=== PATIENT | female | born 1965 | race African-American/Black ===

== ENCOUNTER 2021-07-10 23:18 | Emergency (ER) | payer OTHER, SELFPAY ==
[~2021-07-10] VITALS: Ht 167.6 cm; Wt 74.8 kg
[2021-07-10 23:33] VITALS: BP_SYST 156
--- NOTE | 2021-07-10 23:40 | NUR ---
Pt placed to ER bed 07, to gown, to monitoring tech. Pt c/o SOB r/t asthma exacerbation. Pt states that she believes a "gas smell" triggered episode and has been progressively worsening since 2 pm today. Audible wheezing, tachypnea. SPO2 95% RA. Pt states that she took 2 rounds of inhaler (2 puffs each) and used albuterol nebulizer with no relief in symptoms.
--- NOTE | 2021-07-10 23:40 | NUR ---
Pt placed to ER bed 08.
--- NOTE | 2021-07-10 23:45 | NUR ---
Dr. Amador at bedside. Addendum: 07/11/21 at 0000 by SDEDAJ Pt placed on O2 at 2 LPM/NC per VO Dr. Amador. SPO2 97%.
--- NOTE | 2021-07-10 23:50 | NUR ---
RT at bedside. Neb tx IP.
[2021-07-11] MEDS ORDERED: DEXAMETHASONE SOD PHOSPHATE 4 MG/ML VIAL IVP ONE
[2021-07-11] MEDS ORDERED: IPRATROPIUM/ALBUTEROL SULFATE 3 ML AMPUL.NEB (DUONEB) INH ONE
--- NOTE | 2021-07-11 | NUR ---
Pt verbalizes improvement in breathing, no audible wheezing, SPO2 99 s/p breathing tx. NAD.
--- NOTE | 2021-07-11 00:10 | NUR ---
# 20 gauge angiocath placed to LAC. Use of asceptic technique. Opsite placed over site. Blood return noted. Blood for lab drawn from site. Flushed with 10 cc of normal saline. No evidence of infiltration noted. Patient tolerated well. Specimens for COVID and Infuenza antigens collected and sent to lab.
--- NOTE | 2021-07-11 00:15 | NUR ---
RT at bedside to perform ABG.
--- NOTE | 2021-07-11 00:25 | NUR ---
Radiology at bedside.
[2021-07-11 00:49] LABS: BASOPHILS # (AUTO) 0.1 K/uL (0.0-0.2); BASOPHILS % (AUTO) 0.9 % (0.0-2.0); EOSINOPHILS # (AUTO) 0.8 K/uL (0.0-0.4); EOSINOPHILS % (AUTO) 7.5 % (0.0-4.0); HEMATOCRIT 44.1 % (36-48); HEMOGLOBIN 14.3 g/dL (12.0-16.0); LYMPHOCYTES # (AUTO) 2.9 K/uL (1.0-5.5); LYMPHOCYTES % (AUTO) 26.6 % (20.5-51.5); MEAN CORPUSCULAR HEMOGLOBIN 29 pg (27-31); MEAN CORPUSCULAR HGB CONC 33 % (32-36); MEAN CORPUSCULAR VOLUME 90 fL (79.0-98.0); MONOCYTES # (AUTO) 0.8 K/uL (0.0-1.0); MONOCYTES % (AUTO) 7.6 % (1.7-9.3); NEUTROPHILS # (AUTO) 6.2 K/uL (1.8-7.7); NEUTROPHILS % (AUTO) 57.4 % (40.0-70.0); PLATELET COUNT (AUTO) 213 K/uL (130-430); RED BLOOD CELL COUNT(AUTO) 4.89 MIL/uL (4.2-6.2); RED CELL DISTRIBUTION WIDTH 13.9 % (9.0-15.0); WHITE BLOOD COUNT (AUTO) 10.9 K/uL (4.8-10.8)
[2021-07-11 01:27] LABS: ANION GAP 5 (5-15); CALCIUM 11.2 mg/dL (8.4-11.0); CHLORIDE 108 mmol/L (98-107); CREATININE 0.98 mg/dL (0.55-1.30); GLUCOSE 110 mg/dL (70-99); POTASSIUM 3.3 mmol/L (3.5-5.1); SODIUM SERUM 144 mmol/L (136-145); UREA NITROGEN, BLOOD 16 mg/dL (8-21)
[2021-07-11 01:30] LABS: GFR AFRICAN AMERICAN 75 mL/min (>90)
--- NOTE | 2021-07-11 01:30 | NUR ---
Resting quietly, respirations even and non-labored, SPO2 99%. Denies c/o pain or discomfort and no needs verbalized at this time. NAD.
[2021-07-11 01:36] LABS: ALANINE AMINOTRANSFERASE 16 U/L (12-78); ALBUMIN 3.1 g/dL (3.4-4.8); ASPARTATE AMINOTRANSFERASE 13 U/L (10-37)
[2021-07-11] MEDS ORDERED: ALBU8.5H8 INH (01:39)
[2021-07-11] MEDS ORDERED: PRED20TA PO (01:39)
[2021-07-11] MEDS ORDERED: IPRA3AMP9 INH (01:39)
[2021-07-11 01:56] LABS: TOTAL BILIRUBIN < 0.1 mg/dL (0.0-1.0)
[2021-07-11 02:00] VITALS: BP_SYST 138
--- NOTE | 2021-07-11 02:00 | NUR ---
Patient given written and verbal discharge instructions and verbalizes understanding. ER MD discussed with patient the results and treatment provided. Patient in stable condition. ID arm band removed. IV catheter removed intact and dressing applied, no active bleeding. Rx of Proair HFA, DuoNeb, and Prednisone given. Patient educated on pain management and to follow up with PMD. Pain Scale 0/10. Opportunity for questions provided and answered. Medication side effect fact sheet provided.
== END 2021-07-11 02:00 | disposition home or self-care (01) ==
LOC: SED 23:18
DX: J45.901 Unspecified asthma with (acute) exacerbation (principal); Z20.822 Contact with and (suspected) exposure to COVID-19
CPT/HCPCS: 36415; 36600; 71045; 80053; 82803; 83880; 84484; 85025; 85379; 86710; 87426; 87804 ×2; 94640; 96374; 99284; J1100

== ENCOUNTER 2021-08-12 10:47 | Emergency (ER) | payer OTHER ==
[~2021-08-12] VITALS: Ht 167.6 cm; Wt 73.5 kg
[~2021-08-12 10:47] MED LIST: ALBU8.5H8 INH; IPRA3AMP9 INH; PRED20TA PO
[2021-08-12 10:52] VITALS: BP_SYST 161
--- NOTE | 2021-08-12 10:52 | NUR ---
Placed in room 6 . Placed on clinical research monitor, blood pressure machine and pulse oximeter. To gown for exam. Side rails up. Report given to ROSIBEL LIVE.
--- NOTE | 2021-08-12 10:53 | NUR ---
ER DR. PLATT EXAMINING PT
--- NOTE | 2021-08-12 10:57 | NUR ---
DANNI QUINTANA 89 FROM HOME REPORTS GETTING SOB AFTER SMELLING [employer] SUBSTANCE INSIDE HOME, WHEEZING, HX ASTHMA USED ALBUTEROL MDI AT HOME CALLED 911 BREATHING TX X1 EN ROUTE. ON SCENE 02 92% ON RA. PT ARRIVES AAOX4, WHEEZING. RT AT THE BEDSIDE FOR BREATHING TX. PT STATES SHE FEELS IMPROVED. #20 TO LAC FROM EMS IN PLACE IN PATENT
[2021-08-12] MEDS ORDERED: methylPREDNISolone SOD SUCC/PF 62.5 MG/ML VIAL IVP ONE (11:00)
[2021-08-12] MEDS ORDERED: IPRATROPIUM/ALBUTEROL SULFATE 3 ML AMPUL.NEB (DUONEB) INH ONE (11:00)
[2021-08-12] MEDS ORDERED: NACL 0.9% 1,000 ML IV ONE (11:00)
--- NOTE | 2021-08-12 11:12 | NUR ---
pt feels improvement after RT TX.
--- NOTE | 2021-08-12 12:08 | NUR ---
Called received from Daughter in law Neha Barnett stating she will pick patient uo once discharged , phone number [phone]
[2021-08-12] MEDS ORDERED: KETOROLAC TROMETHAMINE 30 MG VIAL IVP ONE (12:45)
--- NOTE | 2021-08-12 12:50 | NUR ---
Pt medicated for chest wall pain with Toradol 30 mg IVP , well tolerated
[2021-08-12] MEDS ORDERED: ALBU8.5H8 INH (13:32)
[2021-08-12] MEDS ORDERED: PRED20TA PO (13:32)
[2021-08-12 13:41] VITALS: BP_SYST 133
--- NOTE | 2021-08-12 13:42 | NUR ---
Patient given written and verbal discharge instructions and verbalizes understanding. ER Dr. Barkley discussed with patient the results and treatment provided. Patient in stable condition. ID arm band removed. IV catheter removed intact and dressing applied, no active bleeding. Rx of albuterol and prednisone given. Patient educated on pain management and to follow up with PMD. Pain Scale 1. Opportunity for questions provided and answered. Medication side effect fact sheet provided.
== END 2021-08-12 13:42 | disposition home or self-care (01) ==
LOC: SED 10:47
DX: J45.901 Unspecified asthma with (acute) exacerbation (principal); I10 Essential (primary) hypertension
CPT/HCPCS: 94640; 96361; 96374; 96375; 99284; J1885; J2930; J7030

== ENCOUNTER 2021-08-28 19:52 | Inpatient (IN) | payer OTHER ==
[~2021-08-28] VITALS: Ht 167.6 cm; Wt 74.8 kg
--- NOTE | 2021-08-28 19:53 | NUR ---
Pt placed in gown and ready for evaluation ER at bedside examining patient.
[2021-08-28] MEDS ORDERED: MAGNESIUM SULFATE 1 GM/2 ML VIAL ONE (19:59)
[2021-08-28] MEDS ORDERED: MAGNESIUM SULFATE 50 ML IV ONE (20:00)
[2021-08-28] MEDS ORDERED: methylPREDNISolone SOD SUCC 500 MG/VIAL (Solu-MEDROL) IV ONE (20:00)
[2021-08-28] MEDS ORDERED: IPRATROPIUM BROM 0.5 MG/2.5 ML VIAL.NEB (ATROVENT) INH ONE ×2 (20:00→20:01)
[2021-08-28] MEDS ORDERED: ALBUTEROL SULFATE 0.083% 2.5 MG/3 ML VIAL.NEB INH ONE ×2 (20:00)
[2021-08-28 20:28] LABS: EOSINOPHILS # (AUTO) 0.9 K/uL (0.0-0.4); HEMOGLOBIN 15.2 g/dL (12.0-16.0)
[2021-08-28 20:34] LABS: BASOPHILS # (AUTO) 0.1 K/uL (0.0-0.2); BASOPHILS % (AUTO) 1.1 % (0.0-2.0); EOSINOPHILS % (AUTO) 7.1 % (0.0-4.0); HEMATOCRIT 46.3 % (36-48); LYMPHOCYTES # (AUTO) 4.2 K/uL (1.0-5.5); LYMPHOCYTES % (AUTO) 34.1 % (20.5-51.5); MEAN CORPUSCULAR HEMOGLOBIN 30 pg (27-31); MEAN CORPUSCULAR HGB CONC 33 % (32-36); MEAN CORPUSCULAR VOLUME 91 fL (79.0-98.0); MONOCYTES # (AUTO) 0.9 K/uL (0.0-1.0); MONOCYTES % (AUTO) 7.4 % (1.7-9.3); NEUTROPHILS # (AUTO) 6.2 K/uL (1.8-7.7); NEUTROPHILS % (AUTO) 50.3 % (40.0-70.0); PLATELET COUNT (AUTO) 240 K/uL (130-430); RED BLOOD CELL COUNT(AUTO) 5.09 MIL/uL (4.2-6.2); WHITE BLOOD COUNT (AUTO) 12.4 K/uL (4.8-10.8)
[2021-08-28 20:44] VITALS: BP_SYST 150
[2021-08-28 20:45] LABS: CREATININE 1.12 mg/dL (0.55-1.30); POTASSIUM 3.6 mmol/L (3.5-5.1)
[2021-08-28 20:51] LABS: ALBUMIN 3.1 g/dL (3.4-4.8)
--- NOTE | 2021-08-28 20:55 | NUR ---
Pt C/O SOB Pt in apparent asthmatic attack Hx of asthma AOX4 VSS Able to make needs known NAD at this time Will continue to monitor
[2021-08-28 21:14] LABS: TOTAL BILIRUBIN 0.2 mg/dL (0.0-1.0)
--- NOTE | 2021-08-28 21:56 | NUR ---
Admit bed requested Patient will be admitted to care of . Admitted to TELE unit. Diagnosis STATUS ASTMATICUS Inpatient (Yes or No) Y Observation (Yes or No) N Orientation concerns or request close to nursing station (Yes or No) N Covid Status PENDING On vent or bipap N Isolation requirements N Needs a sitter N From Home (Yes or if No enter name of facility) Y Requires Dialysis (Yes or No) N Med Rec Completed (Yes of No) Y
--- NOTE | 2021-08-28 21:58 | NUR ---
CALLED TELE FLOOR FOR BED REQUEST
--- NOTE | 2021-08-28 22:00 | NUR ---
pt resting comfortably in bed AOX4 VSS NAD at this time Will continue to monitor
--- NOTE | 2021-08-28 23:15 | NUR ---
ADMISSION NOTE Received patient from ER via gurney. Patient admitted with diagnosis of Asthma Exacerbation. Patient is awake, alert, oriented X 4. Patient oriented to hospital room, call light, toileting, pain management and safety-teach back done. Patient informed that Collin Morgan will be RN nurse and that their room number is 102A. Personal belongings checked and Belongings List documented. Call light within reach.
--- NOTE | 2021-08-28 23:25 | NUR ---
Pt admitted to tele AOX4 VSS NAD at this time RN at bedside
[2021-08-28] MEDS: METHYLPREDNISOLONE SOD SUCC 40 MG/ML VIAL IVP SCH (23:34)
[2021-08-28 23:39] VITALS: BP_SYST 132
[2021-08-28 23:46] VITALS: BP_SYST 135
[2021-08-29] VITALS (7 sets, daily range): BP systolic 113–139
[2021-08-29] MEDS: METHYLPREDNISOLONE SOD SUCC 40 MG/ML VIAL IVP SCH ×3 (05:40→18:10)
--- NOTE | 2021-08-29 06:26 | NUR ---
CLOSING NOTES: Patient is in bed resting no s/s of distress. Chest rise is even and unlabored on 2L via NC. Patient is AA&Ox4 able to communicate needs and all current shift needs have been met at this time. Safety protocols are in place and call light is within reach. Will differ care to AM shift nurse for continuity of care.
--- NOTE | 2021-08-29 08:00 | NUR ---
NOTES PATIENT AAOX 4. VITALS SIGNS STABLE. AFEBRILE. LUNGS BILATERALLY DIMINISHED AT THE BASES. ABDOMEN SOFT AND NON DISTENDED. HAS OXYGEN 3 LNC. NO PAIN NOR DISTRESS NOTED.
--- NOTE | 2021-08-29 08:36 | NUR ---
no due meds given at this time.
--- NOTE | 2021-08-29 09:30 | NUR ---
WALKS TO THE HALLWAY MANY TIMES. SLIGHT SOB NOTED. CALLED RESPIRATORY TO GIVE TREATMENT.
--- NOTE | 2021-08-29 11:28 | NUR ---
Ballroom Dance Instructor RIB SAWYER Neli received a generated referral for "suicidal risk". RIB SAWYER reviewed admission assessment completed by [employer] former on 08/28/2021 @23:54 the following was found; Refer to Personnel Associate - NO Pt. Significant Other request Social Service Eval- NO Wish to be - NO Suicidal Thoughts- NO Bradford-Suicide Severity Scale...- NO Refer to Ballroom Dance Instructor for suicide risk- YES RIB SAWYER consulted with patient's RN Mariam to inquire into any SI or concerns for SI to which she denied RIB SAWYER met with patient at bedside. RIB SAWYER requested and received permission to speak with friend present at bedside. RIB SAWYER completed introductions and reason for referral. Patient denied any current or past SI. She also denied any need for social service/worker supports. RIB SAWYER acknowledged possible mixup on assessment. RIB SAWYER will be available should need arise.
[2021-08-29] MEDS: LevALBUTEROL HCL 1.25 MG/0.5 ML *CONC.* VIAL.NEB (XOPENEX CONC.) INH PRN (11:31)
--- NOTE | 2021-08-29 13:00 | NUR ---
SOLUMEDROL 60 MG IV GIVEN AT THIS TIME.
--- NOTE | 2021-08-29 13:56 | NUR ---
RESTING IN BED NO SOB NOR PAIN NOTED.
--- NOTE | 2021-08-29 18:00 | NUR ---
SOLUMEDROL 60 MG IV GIVEN AT THIS TIME. EATING DINNER. NO COMPLAINED MADE SO FAR.
--- NOTE | 2021-08-29 18:41 | NUR ---
ENDORSED TO INCOMING NURSE.
--- NOTE | 2021-08-29 19:20 | NUR ---
ENDORSED TO TAYLER GLEASON REGARDING AFTER SOLUMEDROL 60 MG IV GIVEN EARLIER VERBALIZED FEELS FUNNY WITH BIT OF WHEEZING. CALL DR SAVAGE PLEASE FOLLOW UP.
[2021-08-29] MEDS: BUDESONIDE 0.5 MG/2 ML AMPUL.NEB INH SCH (19:47)
[2021-08-29] MEDS: LevALBUTEROL HCL 1.25 MG/0.5 ML *CONC.* VIAL.NEB (XOPENEX CONC.) INH SCH (19:48)
[2021-08-29] MEDS: ENOXAPARIN SODIUM 40 MG/0.4 ML SYRINGE SUBCUT SCH (20:33)
--- NOTE | 2021-08-29 21:19 | NUR ---
Ambulate to hallway with out SOB steady gait.
--- NOTE | 2021-08-30 00:40 | NUR ---
PATIENT RESTING: Patient resting quietly. No acute distress noted. Vital signs within normal range.
[2021-08-30] MEDS: METHYLPREDNISOLONE SOD SUCC 40 MG/ML VIAL IVP SCH ×4 (00:50→22:52)
--- NOTE | 2021-08-30 01:05 | NUR ---
IV RE-INSERTION: Complaining of pain to IV site. Restarted on LEFT HAND g.22. Successful after 2 attempts. Will observe for any signs of infiltration.
--- NOTE | 2021-08-30 06:11 | NUR ---
Slept well no sign of acute respiratory distress the whole night,ambulate to hallway doctor of podiatry no shortness of breath.
[2021-08-30 06:44] LABS: CALCIUM 10.6 mg/dL (8.4-11.0); CREATININE 1.01 mg/dL (0.55-1.30); POTASSIUM 4.1 mmol/L (3.5-5.1)
[2021-08-30 06:47] LABS: BASOPHILS % (AUTO) 0.2 % (0.0-2.0); HEMATOCRIT 43.3 % (36-48); HEMOGLOBIN 14.3 g/dL (12.0-16.0); LYMPHOCYTES # (AUTO) 1.1 K/uL (1.0-5.5); LYMPHOCYTES % (AUTO) 5.9 % (20.5-51.5); MEAN CORPUSCULAR HEMOGLOBIN 30 pg (27-31); MEAN CORPUSCULAR HGB CONC 33 % (32-36); MEAN CORPUSCULAR VOLUME 90 fL (79.0-98.0); MONOCYTES # (AUTO) 0.5 K/uL (0.0-1.0); MONOCYTES % (AUTO) 2.7 % (1.7-9.3); NEUTROPHILS # (AUTO) 17.4 K/uL (1.8-7.7); NEUTROPHILS % (AUTO) 91.2 % (40.0-70.0); PLATELET COUNT (AUTO) 245 K/uL (130-430); RED BLOOD CELL COUNT(AUTO) 4.82 MIL/uL (4.2-6.2); RED CELL DISTRIBUTION WIDTH 13.7 % (9.0-15.0); WHITE BLOOD COUNT (AUTO) 19.1 K/uL (4.8-10.8)
[2021-08-30] MEDS: BUDESONIDE 0.5 MG/2 ML AMPUL.NEB INH SCH ×2 (07:00→19:35)
[2021-08-30] MEDS: LevALBUTEROL HCL 1.25 MG/0.5 ML *CONC.* VIAL.NEB (XOPENEX CONC.) INH SCH ×3 (07:00→19:36)
[2021-08-30 07:31] VITALS: BP_SYST 125
--- NOTE | 2021-08-30 08:17 | NUR ---
NOTE PATIENT IS AAOX 4. PATIENT VITAL SIGNS ARE STABLE, AFEBRILE. PATIENT HAS IV ON LEFT HAND, #20, PATENT AND DRY. BED IN LOWEST POSITION WITH BED BRAKES ON. CALL LIGHT IS WITHIN REACH. PATIENT EDUCATED TO USE CALL LIGHT FOR ASSISTANCE. PATIENT IS COMFORTABLE SUPINE IN BED.
[2021-08-30 08:30] VITALS: BP_SYST 125
--- NOTE | 2021-08-30 08:30 | NUR ---
DUE MEDS GIVEN AT THIS TIME. PATIENT VERBALIZES I AM OKAY.
--- NOTE | 2021-08-30 11:46 | NUR ---
DR SAVAGE CALLED BACK REGARDING LAB RESULT SAID ITS OKAY.
[2021-08-30 11:51] VITALS: BP_SYST 139
--- NOTE | 2021-08-30 12:06 | NUR ---
EATING LUNCH AND REQUESTED TO HAVE A REGULAR TRAY WITH SPOON AND FORK SPOKE TO KRISTI DIETITIFEDERICO
--- NOTE | 2021-08-30 15:00 | NUR ---
SOLUMEDROL 40 MG IV GIVEN. MADE COMFORTABLE. ASSISTS ON ADLS.
--- NOTE | 2021-08-30 17:58 | NUR ---
EATING DINNER AT THIS TIME. NO PAIN NOR DISCOMFORT NOTED.
[2021-08-30 18:22] VITALS: BP_SYST 130
--- NOTE | 2021-08-30 18:47 | NUR ---
ENDORSED TO INCOMING NURSE. PATIENT STABLE.
[2021-08-30 20:00] VITALS: BP_SYST 129
[2021-08-30] MEDS ORDERED: MONTELUKAST 10 MG TABLET PO SCH (20:15)
[2021-08-30] MEDS: ENOXAPARIN SODIUM 40 MG/0.4 ML SYRINGE SUBCUT SCH (22:55)
[2021-08-31] MEDS: LevALBUTEROL HCL 1.25 MG/0.5 ML *CONC.* VIAL.NEB (XOPENEX CONC.) INH SCH ×3 (02:34→12:12)
[2021-08-31] MEDS: BUDESONIDE 0.5 MG/2 ML AMPUL.NEB INH SCH (07:00)
[2021-08-31 08:00] VITALS: BP_SYST 134
[2021-08-31 08:15] VITALS: BP_SYST 134
[2021-08-31] MEDS: LevALBUTEROL HCL 1.25 MG/0.5 ML *CONC.* VIAL.NEB (XOPENEX CONC.) INH PRN (08:58)
[2021-08-31] MEDS: METHYLPREDNISOLONE SOD SUCC 40 MG/ML VIAL IVP SCH (09:00)
[2021-08-31 11:23] VITALS: BP_SYST 134
[2021-08-31 11:59] VITALS: BP_SYST 134
[2021-08-31] MEDS ORDERED: MONT-40 PO (12:31)
[2021-08-31] MEDS ORDERED: ALBMDI INH (12:32)
[2021-08-31] MEDS ORDERED: FLUT1DIS3 IH (12:34)
[2021-08-31] MEDS ORDERED: MEDROL PACK (12:35)
--- NOTE | 2021-08-31 12:40 | NUR ---
RN NOTES: PRESCRIPTION AND DISCHARGE INSTRUCTIONS GIVEN TO PATIENT. VERBALIZED UNDERSTANDING. TELE MONITOR DISCONTINUED. NOT IN DISTRESS. NOT IN PAIN.
== END 2021-08-31 13:15 | disposition home or self-care (01) | DRG 141 ==
LOC: SED 19:52 → STU 21:50
PROVIDERS: ADMIT Family Medicine; ATTEND Family Medicine
DX: J45.901 Unspecified asthma with (acute) exacerbation (principal); E44.1 Mild protein-calorie malnutrition; E87.8 Other disorders of electrolyte and fluid balance, not elsewhere classified; Z20.822 Contact with and (suspected) exposure to COVID-19
CPT/HCPCS: 36415; 71045; 80048; 80053; 83735; 85025; 94640; 94668; 94760; 96374; 96375; 99291; G0378; J1030; J1650; J3475; J7612; J7613; J7626